=== PATIENT | female | born 1975 | race Two or more races ===

== ENCOUNTER 2021-01-17 12:45 | Inpatient (IN) | payer OTHER ==
[~2021-01-17] VITALS: Ht 165.1 cm; Wt 86.2 kg
[2021-01-17] MEDS ORDERED: TOPROL XL25 M1 (16:12)
[2021-01-17] MEDS ORDERED: SYNTHROID75 MCG PO (16:12)
[2021-01-17] MEDS ORDERED: JANUVIA50 MG PO (16:12)
[2021-01-17] MEDS ORDERED: SYNTHROID50 MCG PO (16:13)
[2021-01-18] MEDS ORDERED: CLORAZEPATE DI7.5 MG (14:50)
[2021-01-18] MEDS ORDERED: DULOXETINE HCL30 MG (14:50)
[2021-01-18] MEDS ORDERED: ESCITALOPRAM OX10 MG (14:50)
[2021-01-18] MEDS ORDERED: RESTORIL30 MG (14:51)
[2021-01-18] MEDS ORDERED: PROAIR HFA8.5 GM (14:51)
[2021-01-18] MEDS ORDERED: MONTELUKAST SOD10 MG (14:51)
[2021-01-18] MEDS ORDERED: MEGESTROL ACETA40 MG (14:51)
== END 2021-01-20 14:11 | disposition home or self-care (01) | DRG 743 ==
LOC: O/R 01-18 09:48 → OB/GYN 01-18 09:48
PROVIDERS: ADMIT Specialist; ATTEND Specialist
PROC: 0UT24ZZ Resection of Bilateral Ovaries, Percutaneous Endoscopic Approach (ICD-10-PCS; 2021-01-18)
PROC: 0UT74ZZ Resection of Bilateral Fallopian Tubes, Percutaneous Endoscopic Approach (ICD-10-PCS; 2021-01-18)
PROC: 0JNC0ZZ Release Pelvic Region Subcutaneous Tissue and Fascia, Open Approach (ICD-10-PCS; 2021-01-18)
PROC: 0UT94ZZ Resection of Uterus, Percutaneous Endoscopic Approach (ICD-10-PCS; principal; 2021-01-18 20:00)
DX: N72 Inflammatory disease of cervix uteri (principal); N80.0 Endometriosis of uterus; D25.2 Subserosal leiomyoma of uterus; N83.02 Follicular cyst of left ovary; N83.202 Unspecified ovarian cyst, left side; N83.201 Unspecified ovarian cyst, right side; N73.6 Female pelvic peritoneal adhesions (postinfective)